=== PATIENT | male | born 1960 | race African-American/Black ===

== ENCOUNTER 2017-05-12 09:07 | Emergency (ER) | payer MEDICARE ==
[2017-05-12] MEDS ORDERED: ONDANSETRON HCL INJ/PF 4 MG/2 ML SDV IV ONE (09:33)
[2017-05-12] MEDS ORDERED: NORMAL SALINE 1000 ML 1,000 ML IV ONE ×2 (09:33→10:51)
[2017-05-12] MEDS ORDERED: FENTANYL CITRATE INJ/PF 100 MCG/2 ML AMPUL IV ONE (09:33)
--- NOTE | 2017-05-12 10:23 | ER Document Report ---
ED GI/ - General Chief Complaint: Abdominal Pain Stated Complaint: ABDOMINAL PAIN Time Seen by Provider: 05/12/17 09:32 Mode of Arrival: Ambulatory Information source: Patient Notes: Patient is a 36-year-old male who presents to the ER today for upper abdominal pain, nausea that started yesterday. Patient states that he is a heavy alcohol drinker and drink his last alcoholic beverage yesterday morning. He states that he likes bourbon. Patient denies that he drinks every single day but his family member shakes her head yes whenever he denies this. He admits to a history of pancreatitis and is concerned that this is the same type of pain. He denies any diarrhea, fevers but admits to chills. He denies vomiting. TRAVEL OUTSIDE OF THE [place] IN LAST 30 DAYS: No - Related Data Allergies/Adverse Reactions: No Known Allergies Allergy (Unverified 05/12/17 09:08) Past Medical History - General Information source: Patient, Relative - Social History Smoking Status: Unknown if Ever Smoked Family History: Reviewed & Not Pertinent Review of Systems - Review of Systems Constitutional: See HPI EENT: No symptoms reported Cardiovascular: No symptoms reported Respiratory: No symptoms reported Gastrointestinal: See HPI Genitourinary: No symptoms reported Male Genitourinary: No symptoms reported Musculoskeletal: No symptoms reported Skin: No symptoms reported Hematologic/Lymphatic: No symptoms reported Neurological/Psychological: No symptoms reported Physical Exam - Vital signs Vitals: Temp Pulse Resp BP Pulse Ox 99.4 F 106 H 17 154/91 H 97 05/12/17 09:23 05/12/17 09:23 05/12/17 09:23 05/12/17 09:23 05/12/17 09:23 - Notes Notes: PHYSICAL EXAMINATION: GENERAL: Shaking, mildly ill-appearing, but in no acute distress. HEAD: Atraumatic, normocephalic. EYES: Pupils equal round and reactive to light, extraocular movements intact, sclera anicteric, conjunctiva are normal. ENT: ear canals without erythema or foreign body, TMs pearly ross with good bony landmarks, nares patent, oropharynx clear without exudates. Moist mucous membranes. NECK: Normal range of motion, supple without lymphadenopathy LUNGS: CTAB and equal. No wheezes rales or rhonchi. HEART: Tachycardic with regular rhythm without murmurs ABDOMEN: Soft, right upper quadrant tenderness. No guarding, no rebound BACK: no vertebral tenderness, normal ROM GI/: no CVA tenderness EXTREMITIES: Normal range of motion, no pitting edema. No cyanosis. NEUROLOGICAL: Cranial nerves grossly intact. Normal sensory/motor exams. PSYCH: Normal mood, normal affect. SKIN: Warm, Dry, normal turgor, no rashes or lesions noted Course - Re-evaluation Re-evalutation: 05/12/17 18:42 Patient is shaking and tachycardic, I do have a high suspicion that he is going through alcohol withdrawals at this time. Alcohol level was less than 10. White blood cell count is 16.5. CAT scan of the abdomen Is negative for any acute pathology but does report chronic pancreatitis and fatty liver . Right upper quadrant ultrasound is normal. Patient did very well after Ativan given here in the emergency department and was able to rest. His tachycardia did resolve, vital signs are stable at this time. Initial abdominal CAT scan reported a possible pneumonia the lower lobe, portable chest x-ray reports that the diaphragm probably obscured this so PA LAT chest x-ray was ordered and does not appreciate any infiltrate. Patient will be sent home with Librium taper. - Vital Signs Vital signs: Temp Pulse Resp BP Pulse Ox 98.9 F 92 16 136/95 H 97 05/12/17 16:37 05/12/17 16:37 05/12/17 16:37 05/12/17 16:37 05/12/17 16:37 - Laboratory Result Diagrams: 05/12/17 10:20 05/12/17 13:29 Laboratory results interpreted by me: 05/12/17 05/12/17 05/12/17 10:20 11:15 13:29 WBC 16.5 H RBC 3.18 L Hgb 9.9 L Hct 30.6 L RDW 18.2 H Plt Count 132 L Seg Neutrophils % 87.3 H Lymphocytes % 6.6 L Absolute Neutrophils 14.4 H Chloride 111 H Carbon Dioxide 19 L Glucose 61 L Direct Bilirubin 0.8 H AST 156 H Alkaline Phosphatase 155 H Total Protein 5.9 L Albumin 2.9 L Urine Ketones 20 H Discharge - Discharge Clinical Impression: Alcohol withdrawal Qualifiers: Complication of substance-induced condition: uncomplicated Qualified Code(s): F10.230 - Alcohol dependence with withdrawal, uncomplicated Condition: Stable Disposition: HOME, SELF-CARE Additional Instructions: Please stop drinking alcohol, your liver is starting to show signs that it is damaging it. Return immediately for any new or worsening symptoms. Follow up with primary care provider, call tomorrow to make followup appointment. Prescriptions: Chlordiazepoxide HCl [Librium 25 mg Capsule] 2 cap PO TID PRN #60 capsule PRN Reason:
[2017-05-12] MEDS ORDERED: LORAZEPAM INJ 2 MG/1 ML VIAL IV ONE ×2 (10:50→14:38)
[2017-05-12 10:52] LABS: ABSOLUTE BASOPHILS # (AUTO) 0.1 10^3/uL (0.0-0.2); ABSOLUTE LYMPHOCYTES (AUTO) 1.1 10^3/uL (0.5-4.7); ABSOLUTE MONOCYTES (AUTO) 0.9 10^3/uL (0.1-1.4); ABSOLUTE NEUT (AUTO) 14.4 10^3/uL (1.7-8.2); BASOPHILS % (AUTO) 0.4 % (0-2); EOSINOPHILS % (AUTO) 0.1 % (0-6); HEMATOCRIT 30.6 % (37.9-51.0); HEMOGLOBIN 9.9 g/dL (13.5-17.0); LYMPHOCYTES % (AUTO) 6.6 % (13-45); MEAN CORPUSCULAR HEMOGLOBIN 31.1 pg (27.0-33.4); MEAN CORPUSCULAR HGB CONC 32.3 g/dL (32.0-36.0); MEAN CORPUSCULAR VOLUME 96 fl (80-97); MONOCYTES % (AUTO) 5.6 % (3-13); RED BLOOD COUNT 3.18 10^6/uL (4.35-5.55); RED CELL DISTRIBUTION WIDTH 18.2 % (11.5-14.0); SEGMENTED NEUTROPHILS % (AUTO) 87.3 % (42-78); TOTAL CELLS COUNTED % (AUTO) 100 %; WHITE BLOOD COUNT 16.5 10^3/uL (4.0-10.5)
[2017-05-12 11:18] LABS: PLATELET COUNT 132 10^3/uL (150-450)
[2017-05-12 11:37] LABS: APPEARANCE,URINE CLEAR; BILIRUBIN,URINE NEGATIVE (NEGATIVE); GLUCOSE, URINE NEGATIVE (NEGATIVE); KETONES,URINE 20 mg/dL (NEGATIVE); LEUKOCYTE ESTERASE,URINE NEGATIVE (NEGATIVE); NITRITE,URINE NEGATIVE (NEGATIVE); PROTEIN,URINE NEGATIVE (NEGATIVE); URINE SPECIFIC GRAVITY 1.019; UROBILINOGEN,URINE NEGATIVE mg/dL (<2.0)
[2017-05-12 11:38] LABS: COLOR,URINE DARK YELLOW
--- NOTE | 2017-05-12 12:50 | RADIOLOGY REPORT (SQ) ---
EXAM DESCRIPTION: U/S ABDOMEN LIMITED W/O DOP COMPLETED DATE/TIME: 05/12/2017 12:26 pm REASON FOR STUDY: ruq pain, n/v COMPARISON: None. TECHNIQUE: Dynamic and static grayscale images acquired of the abdomen and recorded on PACS. Additio nal selected color Doppler and spectral images recorded. LIMITATIONS: None. FINDINGS: PANCREAS: No abnormality seen. LIVER: The liver is normal in size measuring 16.8 cm demonstrating increased echogenicity consistent with fatty infiltration. LIVER VASCULATURE: Normal directional flow of the main portal vein and hepatic veins. GALLBLADDER: No abnormality of the gallbladder. The gallbladder wall measures 0.2 cm. ULTRASOUND-DETECTED MIRELES'S SIGN: Negative. INTRAHEPATIC DUCTS AND COMMON DUCT: CBD is normal measuring 0.6 cm. Intrahepatic ducts normal calibe r. No filling defects. INFERIOR VENA CAVA: Normal flow. AORTA: The proximal abdominal aorta measures 2.3 cm in AP diameter. The mid abdominal aorta measures 2.2 cm in AP diameter and distally 1.1 cm. RIGHT KIDNEY: The right kidney is normal in size measuring 9.9 cm. . Normal echogenicity. No solid or suspicious masses. No hydronephrosis. No calcifications. IMPRESSION: FATTY INFILTRATION OF THE LIVER. OTHERWISE, NORMAL RIGHT UPPER QUADRANT ULTRASOUND. TECHNICAL DOCUMENTATION: JOB ID: [id number] 2010 [employer]- All Rights Reserved
[2017-05-12 14:05] LABS: ALANINE AMINOTRANSFERASE 46 U/L (21-72); ALBUMIN 2.9 g/dL (3.5-5.0); ALKALINE PHOSPHATASE 155 U/L (38-126); ANION GAP 13 (5-19); ASPARTATE AMINO TRANSFERASE 156 U/L (17-59); BILIRUBIN,DIRECT 0.8 mg/dL (0.0-0.4); BILIRUBIN,TOTAL 1.3 mg/dL (0.2-1.3); BLOOD UREA NITROGEN 9 mg/dL (7-20); CALCIUM 8.8 mg/dL (8.4-10.2); CARBON DIOXIDE 19 mmol/L (22-30); CHLORIDE 111 mmol/L (98-107); GLUCOSE 61 mg/dL (75-110); LIPASE 108.7 U/L (23-300); POTASSIUM 4.8 mmol/L (3.6-5.0); SODIUM 142.9 mmol/L (137-145); TOTAL PROTEIN 5.9 g/dL (6.3-8.2)
[2017-05-12 14:07] LABS: ALCOHOL < 10 mg/dL (NONE DETECTED)
--- NOTE | 2017-05-12 14:57 | RADIOLOGY REPORT (SQ) ---
EXAM DESCRIPTION: CT ABD/PELVIS WITH IV ONLY COMPLETED DATE/TIME: 05/12/2017 2:38 pm REASON FOR STUDY: pancreatitis? n/v/ leukocytosis COMPARISON: None. TECHNIQUE: CT scan of the abdomen and pelvis performed using helical scanning technique with dynamic intravenous contrast injection. No oral contrast. Images reviewed with lung, soft tissue, and bone windows. Reconstructed coronal and sagittal MPR images reviewed. Delayed images for evaluation of the urinary system also acquired. All images stored on PACS. All CT scanners at this facility use dose modulation, iterative reconstruction, and/or weight based d osing when appropriate to reduce radiation dose to as low as reasonably achievable (ALARA). [facility]: Dose Right [facility]: CareDose [facility]: Dose Right [facility]: Teradose 4D [facility]: [email or web address] CONTRAST TYPE AND DOSE: contrast/concentration: Isovue 370.00 mg/ml; Total Contrast Delivered: 55.0 ml; Total Saline Delivered: 65.0 ml RENAL FUNCTION: Creatinine 0.86 RADIATION DOSE: CT Rad equipment meets quality standard of care and radiation dose reduction techniq ues were employed. CTDIvol: 4.8 mGy. DLP: 477 mGy-cm.. LIMITATIONS: None. FINDINGS: LOWER CHEST: Minimal increased density in the right middle lobe and left lower lobe at [address] some of which represent scarring. Minimal pneumonia in the left lower lobe cannot be excluded. LIVER: Severe fatty change. Normal size. No masses. No dilated ducts. SPLEEN: Normal size. No focal lesions. PANCREAS: Small calcifications in the head of the pancreas raising the possibility of chronic pancrea titis. No evidence of acute pancreatitis. GALLBLADDER: No identified stones by CT criteria. No inflammatory changes to suggest cholecystitis. ADRENAL GLANDS: No significant masses or asymmetry. RIGHT KIDNEY AND URETER: No solid masses. No significant calcifications. No hydronephrosis or hyd roureter. LEFT KIDNEY AND URETER: Less than 1 cm cyst in the upper pole. No solid masses. No significant suzanne cifications. No hydronephrosis or hydroureter. AORTA AND VESSELS: No aneurysm. No dissection. Renal arteries, SMA, celiac without stenosis. RETROPERITONEUM: No retroperitoneal adenopathy, hemorrhage or masses. BOWEL AND PERITONEAL CAVITY: No masses or inflammatory changes. No free fluid or peritoneal masses. APPENDIX: Normal. PELVIS: No mass. No free fluid. Normal bladder. Pelvic phleboliths and prostatic calcifications. ABDOMINAL WALL: No masses. No hernias. BONES: No significant or acute findings. Moderate lumbar scoliosis convex to the left. OTHER: No other significant finding. IMPRESSION: 1. Severe fatty change in the liver. 2. Calcifications in the head of the pancreas suggesting chronic pancreatitis. There is no evidence of acute pancreatitis. 3. Mild increased density in the left lung base posteriorly which could be related to chronic change although pneumonia must also be considered. TECHNICAL DOCUMENTATION: JOB ID: [id number] Quality ID # [id number]: Final reports with documentation of one or more dose reduction techniques (e.g., Au tomated exposure control, adjustment of the mA and/or kV according to patient size, use of iterative reconstruction technique) 2010 [employer]- All Rights Reserved
--- NOTE | 2017-05-12 15:31 | RADIOLOGY REPORT (SQ) ---
EXAM DESCRIPTION: CHEST SINGLE VIEW portable COMPLETED DATE/TIME: 05/12/2017 3:21 pm REASON FOR STUDY: poss pneumonia seen on CT COMPARISON: CT abdomen same pelvis. Patchy density left lung base. EXAM PARAMETERS: NUMBER OF VIEWS: One view. TECHNIQUE: Single frontal radiographic view of the chest acquired. RADIATION DOSE: NA LIMITATIONS: None. FINDINGS: LUNGS AND PLEURA: Lungs are clear on portable chest. Patchy density at the left base seen on CT likely obscured by diaphragm. Correlate clinically. MEDIASTINUM AND HILAR STRUCTURES: No masses. Contour normal. HEART AND VASCULAR STRUCTURES: Heart normal in size. Normal vasculature. BONES: Scoliosis thoracic spine, convex to to the right. HARDWARE: None in the chest. OTHER: No other significant finding. IMPRESSION: The lungs are clear on portable chest. The patchy left basilar densities seen by CT same date likely obscured by the left diaphragm. TECHNICAL DOCUMENTATION: JOB ID: [id number] [employer]- All Rights Reserved
[2017-05-12] MEDS ORDERED: MULTIVITAMIN TABLET PO ONE (16:52)
[2017-05-12] MEDS ORDERED: FOLIC ACID 1 MG TABLET PO ONE (16:52)
--- NOTE | 2017-05-12 18:09 | RADIOLOGY REPORT (SQ) ---
EXAM DESCRIPTION: CHEST PA/LAT COMPLETED DATE/TIME: 05/12/2017 6:01 pm REASON FOR STUDY: pneumonia??? COMPARISON: AP chest 05/12/2017 CT abdomen pelvis 05/12/2017 EXAM PARAMETERS: NUMBER OF VIEWS: two views TECHNIQUE: Digital Frontal and Lateral radiographic views of the chest acquired. RADIATION DOSE: NA LIMITATIONS: none FINDINGS: LUNGS AND PLEURA: No opacities, masses or pneumothorax. No pleural effusion. MEDIASTINUM AND HILAR STRUCTURES: No masses or contour abnormalities. HEART AND VASCULAR STRUCTURES: Heart normal size. No evidence for failure. BONES: Significant S shaped thoracic scoliosis is present HARDWARE: None in the chest. OTHER: No other significant finding. IMPRESSION: Thoracic scoliosis. No acute infiltrates. TECHNICAL DOCUMENTATION: JOB ID: [id number] [employer]- All Rights Reserved
[2017-05-12 19:08] VITALS: BP 141/46
== END 2017-05-12 19:04 | disposition home or self-care (01) ==
LOC: ER 09:07
DX: F10.230 Alcohol dependence with withdrawal, uncomplicated (principal); R10.10 Upper abdominal pain, unspecified; R11.0 Nausea
CPT/HCPCS: 96376; 99285; 96361; 96374; 96375; 36415; 80307; 83690; 85025; 80053; 81001; 71046; 71045; 76705; 74177; J3010; A9270 ×2; J2060; J2405; J7030